=== PATIENT | female | born 1990 | race Two or more races ===

== ENCOUNTER 2017-07-27 10:06 | Emergency (ER) | payer SELFPAY ==
[2017-07-27 10:29] VITALS: BP 105/75
--- NOTE | 2017-07-27 11:07 | ER Document Report ---
HPI - HPI Pain Level: 3 Notes: Patient is a 26-year-old female with no significant past medical history who presents to the ED complaining of urinary urgency, episode of scant hematuria ( one occasion), and bilateral backache 1 day. Patient states that she is still eating and drinking without difficulties. She is having normal bowel movements. Patient states that when she does try to urinate she only gets small amounts out. She denies any concern with STD or STI. She denies any vaginal discharge, odor, or bleeding. No other concerns or complaints at this time. Denies any headache, fever, URI, sore throat, chest pain, palpitations, syncope, cough, shortness of breath, wheeze, dyspnea, abdominal pain, nausea/ vomiting/diarrhea, urinary retention, loss of control of bowel or bladder, numbness/tingling, saddle anesthesia, muscle paralysis/weakness, or rash. No IV drug use or injections/surgeries recently to the back. - ROS Systems Reviewed and Negative: Yes All other systems reviewed and negative - URINARY Urinary: REPORTS: Dysuria - REPRODUCTIVE LMP: mirena Reproductive: DENIES: : Past Medical History - Social History Smoking Status: Current Every Day Smoker Chew tobacco use (# tins/day): No Frequency of alcohol use: None Drug Abuse: Marijuana Family History: None Patient has suicidal ideation: No Patient has homicidal ideation: No Renal/ Medical History: Denies: Hx Peritoneal Dialysis Psychiatric Medical History: Reports: Hx Bipolar Disorder, Hx Depression Past Surgical History: Reports: Hx Dilation and Curettage, Hx Myringotomy - Immunizations Hx Diphtheria, Pertussis, Tetanus Vaccination: No - refused Vertical Provider Document - CONSTITUTIONAL Agree With Documented VS: Yes Notes: PHYSICAL EXAMINATION: GENERAL: Well-appearing, well-nourished and in no acute distress. LUNGS: Breath sounds clear to auscultation bilaterally and equal. No wheezes rales or rhonchi. HEART: Regular rate and rhythm without murmurs, rubs, gallops. ABDOMEN: Soft, nontender, nondistended abdomen. No guarding, no rebound. No masses appreciated. Normal bowel sounds present. + mild left CVA tenderness. Musculoskeletal: FROM to passive/active. Strength 5+/5. Back: FROM. Strength 5+/5. SLR neg. No vertebral point tenderness. No ecchymosis/deformity/erythema. No foot drop. Extremities: No cyanosis, clubbing, or edema b/l. Peripheral pulses 2+. Capillary refill less than 3 seconds. NEUROLOGICAL: Normal speech, normal gait. Normal sensory, motor exams PSYCH: Normal mood, normal affect. SKIN: Warm, Dry, normal turgor, no rashes or lesions noted. - INFECTION CONTROL TRAVEL OUTSIDE OF THE [place] IN LAST 30 DAYS: No Course - Re-evaluation Re-evalutation: 07/27/17 11:18 Patient is an afebrile, well-hydrated, 26-year-old female who presents to the ED with urinary urgency, unspecified as well as low back pain, suspect benign. Vitals are acceptable. PE is otherwise unremarkable for any focal neurological deficits. Urinalysis and hCG were unremarkable for any acute pathology. Patient is tolerating p.o. without any difficulties. No other labs or imaging warranted at this time based on H&P. Low suspicion/risk for acute appendicitis, bowel obstruction, acute cholecystitis, acute cholangitis, perforated diverticulitis, incarcerated hernia , pancreatitis, perforated ulcer, peritonitis, sepsis, pelvic inflammatory disease, ectopic , tubo-ovarian abscess, ovarian torsion, or other systemic emergent condition at this time. Patient is aware that her condition can change from initial presentation and she needs to monitor symptoms closely and seek medical attention if any acute changes. Conservative measures otherwise for symptoms. Recommend conservative measures for symptoms. Toradol given IM today. Recheck with your PCM in 3-5 days. Consider consult with [facility]/urology. Return to the ED with any worsening/concerning symptoms otherwise as reviewed discharge. Patient is in agreement. - Vital Signs Vital signs: Temp Pulse Resp BP Pulse Ox 98.6 F 68 16 105/75 99 07/27/17 10:27 07/27/17 10:27 07/27/17 10:27 07/27/17 10:27 07/27/17 10:27 Discharge - Discharge Clinical Impression: History of urinary urgency Low back pain Qualifiers: Chronicity: acute Back pain laterality: bilateral Sciatica presence: without sciatica Qualified Code(s): M54.5 - Low back pain Condition: Stable Disposition: HOME, SELF-CARE Additional Instructions: Maintain fluid intake Proper hygenic technique Keep the skin clean Tylenol/ibuprofen as needed Take medications as directed F/u with your PCM in 3-5 days for a recheck Consider consult with a Urologist/OBGYN for ongoing/worsening symptoms. Return to the ED with any worsening symptoms and/or development of fever, headache, chest pain, palpitations, syncope, shortness of breath, trouble breathing, abdominal pain, n/v/d, blood in stool/urine, loss of control of bowel /bladder, urinary retention, vagina bleeding/odor/discharge, or other worsening symptoms that are concerning to you. Prescriptions: Naproxen 500 mg PO BID PRN #30 tablet PRN Reason: Referrals: [facility] [Provider Group] - Follow up as needed [facility] [Provider Group] - Follow up as needed
[2017-07-27 11:12] LABS: APPEARANCE,URINE SLIGHTLY-CLOUDY; BILIRUBIN,URINE NEGATIVE (NEGATIVE); COLOR,URINE YELLOW; GLUCOSE, URINE NEGATIVE (NEGATIVE); KETONES,URINE NEGATIVE (NEGATIVE); LEUKOCYTE ESTERASE,URINE NEGATIVE (NEGATIVE); NITRITE,URINE NEGATIVE (NEGATIVE); PROTEIN,URINE NEGATIVE (NEGATIVE); URINE SPECIFIC GRAVITY 1.024; UROBILINOGEN,URINE NEGATIVE mg/dL (<2.0)
[2017-07-27] MEDS ORDERED: KETOROLAC TROMETHAMINE INJ/PF 30 MG/1 ML SDV IM ONE (11:17)
== END 2017-07-27 11:48 | disposition home or self-care (01) ==
LOC: ER 10:06
DX: R39.15 Urgency of urination (principal); M54.5 Low back pain; F17.200 Nicotine dependence, unspecified, uncomplicated
CPT/HCPCS: 99283; 96372; 36415; 87086; 81025; 81001; J1885

== ENCOUNTER 2017-12-02 14:55 | Emergency (ER) | payer SELFPAY ==
[2017-12-02] MEDS ORDERED: ASPIRIN 325 MG TABLET PO ONE (15:44)
--- NOTE | 2017-12-02 15:45 | ER Document Report ---
ED Medical Screen (RME) - General Chief Complaint: Chest Pain Stated Complaint: ARM PAIN Time Seen by Provider: 12/02/17 15:43 Mode of Arrival: Ambulatory Information source: Patient TRAVEL OUTSIDE OF THE [place] IN LAST 30 DAYS: No - HPI Patient complains to provider of: cp Onset: This morning - pt with CPradiating down R arm starting earlier today - Related Data Allergies/Adverse Reactions: oxycodone HCl [From Percocet] Adverse Reaction (Intermediate, Verified 12/02/17 15:28) Vomiting promethazine HCl [From Phenergan] Adverse Reaction (Intermediate, Verified 12/02 15:28) VOMITING Past Medical History - Social History Frequency of alcohol use: None Drug Abuse: Methamphetamine Renal/ Medical History: Denies: Hx Peritoneal Dialysis Psychiatric Medical History: Reports: Hx Bipolar Disorder, Hx Depression Past Surgical History: Reports: Hx Dilation and Curettage, Hx Gynecologic Surgery - D & C, Hx Myringotomy - Immunizations Hx Diphtheria, Pertussis, Tetanus Vaccination: No - refused Physical Exam - Vital signs Vitals: Temp Pulse Resp BP Pulse Ox 97.9 F 64 16 99/62 L 99 12/02/17 15:00 12/02/17 15:00 12/02/17 15:00 12/02/17 15:00 12/02/17 15:00 Course - Vital Signs Vital signs: Temp Pulse Resp BP Pulse Ox 97.9 F 64 16 99/62 L 99 12/02/17 15:00 12/02/17 15:00 12/02/17 15:00 12/02/17 15:00 12/02/17 15:00
[2017-12-02 16:35] LABS: ABSOLUTE EOSINOPHILS # (AUTO) 0.3 10^3/uL (0.0-0.6); ABSOLUTE LYMPHOCYTES (AUTO) 2.9 10^3/uL (0.5-4.7); ABSOLUTE MONOCYTES (AUTO) 0.5 10^3/uL (0.1-1.4); ABSOLUTE NEUT (AUTO) 3.9 10^3/uL (1.7-8.2); BASOPHILS % (AUTO) 0.5 % (0-2); EOSINOPHILS % (AUTO) 3.8 % (0-6); HEMATOCRIT 41.2 % (36.0-47.0); MEAN CORPUSCULAR HEMOGLOBIN 32.1 pg (27.0-33.4); MEAN CORPUSCULAR HGB CONC 34.1 g/dL (32.0-36.0); MEAN CORPUSCULAR VOLUME 94 fl (80-97); MONOCYTES % (AUTO) 6.7 % (3-13); PLATELET COUNT 346 10^3/uL (150-450); RED BLOOD COUNT 4.38 10^6/uL (3.72-5.28); RED CELL DISTRIBUTION WIDTH 12.2 % (11.5-14.0); TOTAL CELLS COUNTED % (AUTO) 100 %; WHITE BLOOD COUNT 7.6 10^3/uL (4.0-10.5)
[2017-12-02 16:53] LABS: ALANINE AMINOTRANSFERASE 17 U/L (9-52); ALBUMIN 4.1 g/dL (3.5-5.0); ALKALINE PHOSPHATASE 44 U/L (38-126); ANION GAP 10 (5-19); ASPARTATE AMINO TRANSFERASE 19 U/L (14-36); BILIRUBIN,DIRECT 0.2 mg/dL (0.0-0.4); BILIRUBIN,TOTAL 0.7 mg/dL (0.2-1.3); BLOOD UREA NITROGEN 15 mg/dL (7-20); CARBON DIOXIDE 29 mmol/L (22-30); CHLORIDE 105 mmol/L (98-107); CREATINE KINASE 123 U/L (30-135); GLUCOSE 86 mg/dL (75-110); POTASSIUM 3.7 mmol/L (3.6-5.0); TOTAL PROTEIN 6.9 g/dL (6.3-8.2)
[2017-12-02 16:56] LABS: URINE AMPHETAMINES SCREEN NEGATIVE; URINE BARBITURATES SCREEN NEGATIVE; URINE BENZODIAZEPINES SCREEN NEGATIVE; URINE COCAINE SCREEN NEGATIVE; URINE MARIJUANA (THC) SCREEN UNCONFIRMED POSITIVE; URINE METHADONE SCREEN NEGATIVE; URINE PHENCYCLIDINE SCREEN NEGATIVE
[2017-12-02 17:14] LABS: CREATINE KINASE MB 0.76 ng/mL (<4.55)
[2017-12-02 17:16] LABS: TROPONIN I < 0.012 ng/mL
--- NOTE | 2017-12-02 18:07 | RADIOLOGY REPORT (SQ) ---
EXAM DESCRIPTION: CHEST 2 VIEWS COMPLETED DATE/TIME: 12/02/2017 5:53 pm REASON FOR STUDY: cp COMPARISON: None. EXAM PARAMETERS: NUMBER OF VIEWS: two views TECHNIQUE: Digital Frontal and Lateral radiographic views of the chest acquired. RADIATION DOSE: NA LIMITATIONS: none FINDINGS: LUNGS AND PLEURA: No opacities, masses or pneumothorax. No pleural effusion. MEDIASTINUM AND HILAR STRUCTURES: No masses or contour abnormalities. HEART AND VASCULAR STRUCTURES: Heart normal size. No evidence for failure. BONES: No acute findings. HARDWARE: None in the chest. OTHER: No other significant finding. IMPRESSION: NO ACUTE RADIOGRAPHIC FINDING IN THE CHEST. TECHNICAL DOCUMENTATION: JOB ID: [id number] [employer]- All Rights Reserved Reading location - IP/workstation name: [email or web address]
[2017-12-02 18:33] LABS: APPEARANCE,URINE SLIGHTLY-CLOUDY; BILIRUBIN,URINE NEGATIVE (NEGATIVE); COLOR,URINE YELLOW; GLUCOSE, URINE NEGATIVE (NEGATIVE); KETONES,URINE NEGATIVE (NEGATIVE); LEUKOCYTE ESTERASE,URINE NEGATIVE (NEGATIVE); NITRITE,URINE POSITIVE (NEGATIVE); PROTEIN,URINE NEGATIVE (NEGATIVE); URINE SPECIFIC GRAVITY 1.023; UROBILINOGEN,URINE NEGATIVE mg/dL (<2.0)
[2017-12-02 19:30] VITALS: BP 107/81
[2017-12-02] MEDS ORDERED: KETOROLAC TROMETHAMINE 60 MG/2 ML SDV IM ONE (19:35)
[2017-12-02] MEDS ORDERED: LIDOCAINE 5% (700 MG) TRANSDERMAL ADH..PATCH TP ONE (19:35)
--- NOTE | 2017-12-02 19:39 | ER Document Report ---
ED General - General Chief Complaint: Chest Pain Stated Complaint: ARM PAIN Time Seen by Provider: 12/02/17 15:43 Mode of Arrival: Ambulatory Notes: Patient is a 27-year-old female without chronic medical problems who presents with diffuse chest pain as well as right upper extremity paresthesias that started approximately 8 hours prior to arrival and have been ongoing since that time. 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 She describes the pain in her chest is a stabbing, aching, constant pain. She states the pain is worsened with movement. Nothing improves the pain. She denies any history of similar symptoms in the past. She has no history of cardiac conditions, DVT or pulmonary embolus. No history of connective tissue disorders. No family history of early cardiac disease. She has not seen her general doctor regarding today's concerns. TRAVEL OUTSIDE OF THE [place] IN LAST 30 DAYS: No - Related Data Allergies/Adverse Reactions: oxycodone HCl [From Percocet] Adverse Reaction (Intermediate, Verified 12/02/17 15:28) Vomiting promethazine HCl [From Phenergan] Adverse Reaction (Intermediate, Verified 12/02 15:28) VOMITING Past Medical History - General Information source: Patient - Social History Smoking Status: Current Every Day Smoker Frequency of alcohol use: None Drug Abuse: Marijuana Lives with: Family Family History: Reviewed & Not Pertinent Patient has suicidal ideation: No Patient has homicidal ideation: No Renal/ Medical History: Denies: Hx Peritoneal Dialysis Psychiatric Medical History: Reports: Hx Bipolar Disorder, Hx Depression Past Surgical History: Reports: Hx Dilation and Curettage, Hx Gynecologic Surgery - D & C, Hx Myringotomy - Immunizations Hx Diphtheria, Pertussis, Tetanus Vaccination: No - refused Review of Systems - Review of Systems Notes: Constitutional: Negative for fever. HENT: Negative for sore throat. Eyes: Negative for visual changes. Cardiovascular: Positive for chest pain. Respiratory: Negative for shortness of breath. Gastrointestinal: Negative for abdominal pain, vomiting or diarrhea. Genitourinary: Negative for dysuria. Musculoskeletal: Negative for back pain. Skin: Negative for rash. Neurological: Negative for headaches, positive for right upper extremity paresthesias 10 point ROS negative except as marked above and in HPI. Physical Exam - Vital signs Vitals: Temp Pulse Resp BP Pulse Ox 97.9 F 64 16 99/62 L 99 08/10/18 15:00 12/02/17 15:00 12/02/17 15:00 12/02/17 15:00 12/02/17 15:00 Interpretation: Normal Notes: PHYSICAL EXAMINATION: GENERAL: Well-appearing, well-nourished and in no acute distress. HEAD: Atraumatic, normocephalic. EYES: Pupils equal round and reactive to light, extraocular movements intact, sclera anicteric, conjunctiva are normal. ENT: nares patent, oropharynx clear without exudates. Moist mucous membranes. NECK: Normal range of motion, supple without lymphadenopathy LUNGS: Breath sounds clear to auscultation bilaterally and equal. No wheezes rales or rhonchi. HEART: Regular rate and rhythm without murmurs Chest wall: Severe pain on palpation of the left and right central chest ABDOMEN: Soft, nontender, normoactive bowel sounds. No guarding, no rebound. No masses appreciated. EXTREMITIES: Normal range of motion, no pitting or edema. No cyanosis. NEUROLOGICAL: Face symmetric. Tongue protrudes midline. Extraocular motions intact. Pupils are 2 mm and equally reactive. Normal speech, normal gait. 5 out of 5 strength in both the distal and proximal upper and lower extremities bilaterally. Sensation is grossly intact throughout. Finger to nose testing normal. Pronator drift normal. PSYCH: Normal mood, normal affect. SKIN: Warm, Dry, normal turgor, no rashes or lesions noted. Course - Re-evaluation Re-evalutation: 12/02/17 19:36 Presentation of chest pain in an otherwise well appearing patient. Low clinical suspicion for ACS given clinical history, exam, EKG without ST elevations or depressions, and negative initial troponin. HEART score less than or equal to 3. PE also seems unlikely given clinical history, absence of tachycardia or dyspnea. Patient is PERC criteria negative. CXR without evidence of pneumothorax or pneumonia. No widened mediastinum. Aortic dissection also seems unlikely given history, symmetric pulses, CXR, and vitals. Patient has had chest pain for greater than 6 hours at the time of initial assessment and her very atypical clinical history does not warrant serial cardiac marker testing. The patient's pain is completely reproducible with palpation of the chest wall as well as the periscapular muscles in the back. Range of motion of the shoulders also irritates her discomfort. She has no risk factors other than smoking for cardiac disease. She will be treated with NSAIDs and topical lidocaine. At this time will discharge with return precautions and follow-up recommendations. Verbal discharge instructions given a the bedside and opportunity for questions given. Medication warnings reviewed. Patient is in agreement with this plan and has verbalized understanding of return precautions and the need for primary care follow-up in the next 24-72 hours. - Vital Signs Vital signs: Temp Pulse Resp BP Pulse Ox 98.3 F 62 16 107/81 99 12/02/17 19:27 12/02/17 19:27 12/02/17 19:27 12/02/17 19:27 12/02/17 19:27 - Laboratory Result Diagrams: 12/02/17 16:20 12/02/17 16:20 Laboratory results interpreted by me: 12/02/17 16:20 Urine Nitrite POSITIVE H - Diagnostic Test Radiology reviewed: Image reviewed, Reports reviewed Radiology results interpreted by me: 12/02/17 19:37 Chest x-ray: No acute infiltrate or pneumothorax - EKG Interpretation by Me Additional EKG results interpreted by me: 12/02/17 19:37 Sinus rhythm. Rate 63. No ST elevations or depressions. QTC is 406. Discharge - Discharge Clinical Impression: Chest wall pain, Arm paresthesia, right Condition: Good Disposition: HOME, SELF-CARE Additional Instructions: You were seen today for chest pain. The exact cause of your pain is unclear although it appears to be most likely related to the muscles of your chest. Please take the naproxen that has been prescribed as directed. Based on your cardiac enzyme testing, chest x-ray, and EKG it does not appear that it is from an immediately life-threatening cause at this time. Although your testing here is normal is critical that you follow-up with your primary care physician for continued evaluation of this chest pain and possible stress testing. I recommended you see your physician within the next 24-48 hours to be evaluated for consideration of a stress test. Please return to emergency department immediately if you have worsening of your chest pain, shortness of breath, vomiting, become unable to exert yourself due to pain or difficulty breathing, you pass out, or have any pain that radiates into your arms, jaw, or back. Please also return if you have any additional symptoms that are concerning to you. Prescriptions: Naproxen 500 mg PO BID PRN #60 tablet PRN Reason: Forms: Return to Work
--- NOTE | 2017-12-03 00:09 | EKG REPORT ---
SEVERITY:- OTHERWISE NORMAL ECG - BORDERLINE LEFT AXIS DEVIATION SINUS RHYTHM : Confirmed by: Lexii Loera MD 03-Dec-2017 00:08:00
== END 2017-12-02 20:00 | disposition home or self-care (01) ==
LOC: ER 14:55
DX: R07.89 Other chest pain (principal); R20.2 Paresthesia of skin; F17.200 Nicotine dependence, unspecified, uncomplicated; F12.10 Cannabis abuse, uncomplicated
CPT/HCPCS: 36415; 71046; 80053; 80307; 81001; 81025; 82550; 82553; 84484; 85025; 93005; 93010; 99285

== ENCOUNTER 2017-12-14 12:58 | Emergency (ER) | payer SELFPAY ==
--- NOTE | 2017-12-14 14:09 | ER Document Report ---
ED Medical Screen (RME) - General Chief Complaint: Chest Pain Stated Complaint: CHEST PAIN Time Seen by Provider: 12/14/17 14:00 Mode of Arrival: Ambulatory Information source: Patient Notes: This is a 27-year-old female with no significant medical problems who presents to the emergency room with chest tightness for the past 2 weeks. She says it is worse with movement and lifting at work. She states it is worse when taking in a deep breath. She was evaluated December 02 for this and was treated with Naprosyn patient states she took it a few times but stopped because she did not like the way it felt. She does have a history of hypertension. Patient is otherwise on no medicines. PERC score is negative: Age 27 O2 sat 98% on room air Heart rate 80 No history of VTE No recent trauma Denies hemoptysis No exogenous estrogen No calf complaints or visible asymmetry TRAVEL OUTSIDE OF THE [place] IN LAST 30 DAYS: No - HPI Onset: Last week Onset/Duration: Gradual Quality of pain: Dull Severity: Mild Pain Level: 1 Associated Symptoms: Chest pain. denies: Cough (productive), Cough ( nonproductive), Diarrhea, Nausea, Shortness of breath Exacerbated by: Movement Relieved by: Remaining still Similar symptoms previously: Yes Recently seen / treated by doctor: Yes - Related Data Smoking: Cigarettes - 3-4 cigarettes a day Frequency of alcohol use: None Drug Abuse: None Allergies/Adverse Reactions: oxycodone HCl [From Percocet] Adverse Reaction (Intermediate, Verified 12/14/17 13:00) Vomiting promethazine HCl [From Phenergan] Adverse Reaction (Intermediate, Verified 12/14 13:00) VOMITING Past Medical History - General Information source: Patient - Social History Cigarette use (# per day): Yes - 2-4 cigarettes a day Chew tobacco use (# tins/day): No Frequency of alcohol use: Rare Drug Abuse: Marijuana Lives with: Family Family history: None - Past Medical History Cardiac Medical History: Denies: Hx Atrial Fibrillation, Hx Congestive Heart Failure, Hx Hypertension Pulmonary Medical History: Denies: Hx Asthma, Hx COPD, Hx Pneumonia Neurological Medical History: Reports: None Endocrine Medical History: Reports: None Renal/ Medical History: Denies: Hx Peritoneal Dialysis Malignancy Medical History: Reports: None GI Medical History: Reports: None Musculoskeltal Medical History: Reports None Psychiatric Medical History: Reports: Hx Bipolar Disorder, Hx Depression Past Surgical History: Reports: Hx Dilation and Curettage, Hx Gynecologic Surgery - D & C, Hx Myringotomy - Immunizations Hx Diphtheria, Pertussis, Tetanus Vaccination: No - refused Review of Systems - Review of Systems Constitutional: denies: Chills, Fever EENT: No symptoms reported Cardiovascular: denies: Palpitations, Heart racing, Orthopnea, Dyspnea, Syncope Respiratory: denies: Hemoptysis, Short of breath Gastrointestinal: No symptoms reported Genitourinary: No symptoms reported Female Genitourinary: No symptoms reported Musculoskeletal: See HPI Skin: No symptoms reported Hematologic/Lymphatic: No symptoms reported Neurological/Psychological: No symptoms reported Physical Exam - Vital signs Vitals: Temp Pulse Resp BP Pulse Ox 98.9 F 80 20 107/79 98 12/14/17 13:11 12/14/17 13:11 12/14/17 13:11 12/14/17 13:11 12/14/17 13:11 Notes: Physical exam: GENERAL: 27-year-old female, alert and oriented 3, no acute distress. Patient looks good. HEAD: Atraumatic, normocephalic. EYES: Pupils equal round and reactive to light, extraocular movements intact, sclera anicteric, conjunctiva are normal. ENT: TMs normal, nares patent, oropharynx clear without exudates. Moist mucous membranes. NECK: Normal range of motion, supple without obvious mass or JVD. LUNGS: Breath sounds clear to auscultation bilaterally and equal. No wheezes rales or rhonchi. HEART: Regular rate and rhythm without murmurs, rubs or gallops. ABDOMEN: Soft, normoactive bowel sounds. No tenderness to palpation. No guarding, no rebound. No masses appreciated. EXTREMITIES: Normal range of motion, no pitting or edema. No clubbing or cyanosis. NEUROLOGICAL: Cranial nerves II through XII grossly intact. Normal speech, moving all extremities. PSYCH: Normal mood, normal affect. SKIN: Warm, Dry, normal turgor, no rashes or lesions noted. Course - Re-evaluation Re-evalutation: 12/14/17 19:51 Note: Patient's oxygen saturation is quite good. She looks comfortable. Her lungs are clear. She is PERC negative and her d-dimer is negative which makes her risk of pulmonary embolism exceedingly low. Her EKG shows no significant changes. Her symptoms are not consistent with an acute coronary syndrome. It does appear to be worse with movement of her chest wall at work. - Vital Signs Vital signs: Temp Pulse Resp BP Pulse Ox 97.8 F 96 18 113/83 100 12/14/17 17:51 12/14/17 17:51 12/14/17 17:51 12/14/17 17:51 12/14/17 17:51 - Laboratory Result Diagrams: 12/14/17 14:23 12/14/17 16:38 Laboratory results interpreted by me: 12/14/17 16:38 Glucose 127 H Doctor's Discharge - Discharge Clinical Impression: Chest wall pain Condition: Stable Disposition: HOME, SELF-CARE Additional Instructions: As discussed, your labs look quite good today. The heart tests were normal and the tests for blood clot was normal. Your EKG was a normal rhythm and no change from previous which is good. I recommend taking some ibuprofen every 6 hours for pain. Also, you could try the albuterol inhaler: 2 puffs every 6 hours to see if it helps with the tightness. Follow-up with a primary care doctor: I left the number for the [facility] clinic [facility] the [facility]. Return to the emergency room for any shortness of breath, worsening pain or any concerns or getting worse. Forms: Restricted Release, Return to Work Referrals: [facility] [Provider Group] - Follow up in 1 week (This is the number the [facility]: Call for)
[2017-12-14 14:49] LABS: ABSOLUTE EOSINOPHILS # (AUTO) 0.2 10^3/uL (0.0-0.6); ABSOLUTE LYMPHOCYTES (AUTO) 2.3 10^3/uL (0.5-4.7); ABSOLUTE MONOCYTES (AUTO) 0.6 10^3/uL (0.1-1.4); ABSOLUTE NEUT (AUTO) 4.7 10^3/uL (1.7-8.2); BASOPHILS % (AUTO) 0.5 % (0-2); EOSINOPHILS % (AUTO) 2.5 % (0-6); HEMATOCRIT 42.9 % (36.0-47.0); HEMOGLOBIN 14.5 g/dL (12.0-15.5); LYMPHOCYTES % (AUTO) 29.2 % (13-45); MEAN CORPUSCULAR HEMOGLOBIN 31.7 pg (27.0-33.4); MEAN CORPUSCULAR HGB CONC 33.8 g/dL (32.0-36.0); MEAN CORPUSCULAR VOLUME 94 fl (80-97); MONOCYTES % (AUTO) 7.2 % (3-13); PLATELET COUNT 345 10^3/uL (150-450); RED BLOOD COUNT 4.57 10^6/uL (3.72-5.28); RED CELL DISTRIBUTION WIDTH 12.6 % (11.5-14.0); SEGMENTED NEUTROPHILS % (AUTO) 60.6 % (42-78); TOTAL CELLS COUNTED % (AUTO) 100 %; WHITE BLOOD COUNT 7.7 10^3/uL (4.0-10.5)
[2017-12-14 15:23] LABS: CREATINE KINASE MB 0.45 ng/mL (<4.55)
[2017-12-14 15:27] LABS: TROPONIN I < 0.012 ng/mL
[2017-12-14 17:13] LABS: ALANINE AMINOTRANSFERASE 21 U/L (9-52); ALBUMIN 4.2 g/dL (3.5-5.0); ALKALINE PHOSPHATASE 50 U/L (38-126); ANION GAP 14 (5-19); ASPARTATE AMINO TRANSFERASE 18 U/L (14-36); BILIRUBIN,DIRECT 0.2 mg/dL (0.0-0.4); BILIRUBIN,TOTAL 0.3 mg/dL (0.2-1.3); BLOOD UREA NITROGEN 20 mg/dL (7-20); CALCIUM 9.2 mg/dL (8.4-10.2); CARBON DIOXIDE 25 mmol/L (22-30); CHLORIDE 105 mmol/L (98-107); CREATINE KINASE 111 U/L (30-135); GLUCOSE 127 mg/dL (75-110); POTASSIUM 4.3 mmol/L (3.6-5.0); SODIUM 143.5 mmol/L (137-145); TOTAL PROTEIN 7.3 g/dL (6.3-8.2)
[2017-12-14] MEDS ORDERED: ALBUTEROL SULFATE HFA (90 MCG/PUFF) 8 GM MDI (1 MDI/ER DISP) IH ONE (17:50)
[2017-12-14 18:00] VITALS: BP 113/83
--- NOTE | 2017-12-14 22:19 | EKG REPORT ---
SEVERITY:- OTHERWISE NORMAL ECG - SINUS RHYTHM LEFT AXIS DEVIATION : Confirmed by: Mariana Thompson 14-Dec-2017 22:17:55
== END 2017-12-14 18:00 | disposition home or self-care (01) ==
LOC: ER 12:58
DX: R07.89 Other chest pain (principal)
CPT/HCPCS: 93005; 99284; 36415; 82553; 82550; 85025; 80053; 84484; 85379; 93010; J3490

== ENCOUNTER 2018-07-28 21:05 | Emergency (ER) | payer SELFPAY ==
[2018-07-28] MEDS ORDERED: ONDANSETRON 4 MG TAB.RAPDIS PO ONE (23:30)
--- NOTE | 2018-07-28 23:40 | ER Document Report ---
Addendum entered and electronically signed by TEJAS WOLFE NP 07/28/18 23:42: Discharge - Discharge Clinical Impression: Diarrhea Condition: Stable Disposition: HOME, SELF-CARE Instructions: Diarrhea, Nonspecific ([facility]), Nausea or Vomiting, Nonspecific ([facility]) Additional Instructions: Take medication as prescribed. Drink plenty fluids. Tylenol or Motrin as needed for pain. Follow-up with your doctor if not better in the next 3-5 days, sooner for worsening symptoms, high fever, severe abdominal pain, persistent vomiting, blood in her stool, or for any further concerns. Prescriptions: Dicyclomine HCl [Bentyl 20 mg Tablet] 20 mg PO QID #20 tablet Ondansetron HCl [Zofran 4 mg Tablet] 1 - 2 tab PO Q4H PRN #10 tablet PRN Reason: Forms: Elevated Blood Pressure, Smoking Cessation Education, Return to Work Referrals: [facility] [Provider Group] - Follow up as needed Original Note: ED GI/ - General Chief Complaint: Loose Stools Stated Complaint: DIARRHEA Time Seen by Provider: 07/28/18 23:16 Mode of Arrival: Ambulatory Information source: Patient TRAVEL OUTSIDE OF THE [place] IN LAST 30 DAYS: No - HPI Patient complains to provider of: Diarrhea Notes: 07/28/18 23:33 Patient is here with her 2 children that are also being seen for nausea vomiting. Mother states that she has had some upset stomach, nausea without vomiting but has had some diarrhea but in her stool. She denies any specific abdominal pain other than some occasional cramping. Her children are being seen with vomiting. She states that she had to miss work, so her only reason for coming in today was to get a work note. She denies fevers. No dysuria or hematuria. No chest pain or shortness of breath. No numbness, tingling, weakness. No recent travel. No specific bad food that she is aware of. Nothing seems to make her symptoms better or worse. She has had approximately 2 watery stools, no blood. She denies any other specific complaints at this time. - Related Data Allergies/Adverse Reactions: oxycodone HCl [From Percocet] Adverse Reaction (Intermediate, Verified 12/14/17 13:00) Vomiting promethazine HCl [From Phenergan] Adverse Reaction (Intermediate, Verified 12/14/17 13:00) VOMITING Past Medical History - Social History Smoking Status: Current Every Day Smoker Chew tobacco use (# tins/day): No Frequency of alcohol use: None Drug Abuse: None Family History: Reviewed & Not Pertinent Patient has suicidal ideation: No Patient has homicidal ideation: No - Past Medical History Cardiac Medical History: Denies: Hx Atrial Fibrillation, Hx Congestive Heart Failure, Hx Hypertension Pulmonary Medical History: Denies: Hx Asthma, Hx COPD, Hx Pneumonia Renal/ Medical History: Denies: Hx Peritoneal Dialysis Psychiatric Medical History: Reports: Hx Bipolar Disorder, Hx Depression Past Surgical History: Reports: Hx Dilation and Curettage, Hx Gynecologic Surgery - D & C, Hx Myringotomy - Immunizations Hx Diphtheria, Pertussis, Tetanus Vaccination: No - refused Review of Systems - Review of Systems -: Yes All other systems reviewed and negative Physical Exam - Vital signs Vitals: Temp Pulse Resp BP Pulse Ox 98.3 F 100 16 104/68 98 07/28/18 21:39 07/28/18 21:39 07/28/18 21:39 07/28/18 21:39 07/28/18 21:39 - Notes Notes: GENERAL: alert, cooperative, nontoxic, no distress. HEAD: normocephalic, atraumatic EYES: conjunctiva pink without discharge, no external redness or swelling. EARS: no external swelling, no external redness NOSE: atraumatic, no external swelling MOUTH/THROAT: mucous membranes moist and pink, posterior pharynx without erythema, swelling, exudate. No trismus or drooling. NECK: soft, supple, full range of motion, no meningismus. CHEST: no distress, lungs clear and equal throughout. No wheezing, rales, rhonchi. CARDIAC: regular rate and rhythm, no murmur, normal capillary refill, normal pulses. No peripheral edema noted. ABDOMEN: Soft, nontender. No rebound tenderness or guarding. No mass. BACK: full range of motion. EXTREMITIES: full range of motion of all extremities. No redness, no swelling. NEURO: alert and oriented x 3, no focal deficits, full range of motion of all extremities. PYSCH: appropriate mood, affect. Patient is cooperative. SKIN: pink, warm, dry, no rash. Course - Re-evaluation Re-evalutation: 07/28/18 23:34 Patient is nontoxic-appearing with stable vitals. The patient is here with complaints of a few episodes of diarrhea with upset stomach that started earlier this afternoon. Her 2 children are being seen as well for nausea via. They both have a benign exam as well. Mother appears well hydrated, she has no specific focal abdominal tenderness on exam. Her vitals are stable. Patient was given a dose of Zofran for her nausea. She states the only reason she is being seen so that she can get a work note. At this point the patient will be discharged home with a prescription for Zofran and Bentyl. Instructions to drink plenty fluids. Work note. Follow-up if not better in the next 3-5 days, sooner for any worsening symptoms, high fever, severe abdominal pain, persistent vomiting, or for any further concerns. Patient most likely having gastroenteritis versus food poisoning as her 2 children are having the same symptoms. - Vital Signs Vital signs: Temp Pulse Resp BP Pulse Ox 98.3 F 100 16 104/68 98 07/28/18 21:39 07/28/18 21:39 07/28/18 21:39 07/28/18 21:39 07/28/18 21:39 Discharge - Discharge Clinical Impression: Diarrhea Condition: Stable Disposition: HOME, SELF-CARE Instructions: Nausea or Vomiting, Nonspecific ([facility]), Diarrhea, Nonspecific ([facility]) Additional Instructions: Take medication as prescribed. Drink plenty fluids. Tylenol or Motrin as needed for pain. Follow-up with your doctor if not better in the next 3-5 days, sooner for worsening symptoms, high fever, severe abdominal pain, persistent vomiting, blood in her stool, or for any further concerns. Prescriptions: Dicyclomine HCl [Bentyl 20 mg Tablet] 20 mg PO QID #20 tablet Ondansetron HCl [Zofran 4 mg Tablet] 1 - 2 tab PO Q4H PRN #10 tablet PRN Reason: Forms: Elevated Blood Pressure, Smoking Cessation Education Referrals: [facility] [Provider Group] - Follow up as needed
[2018-07-29 00:37] VITALS: BP 110/72
== END 2018-07-29 00:50 | disposition home or self-care (01) ==
LOC: ER 21:05
DX: R19.7 Diarrhea, unspecified (principal); R11.0 Nausea; R10.9 Unspecified abdominal pain; F17.200 Nicotine dependence, unspecified, uncomplicated
CPT/HCPCS: 99283; S0119

== ENCOUNTER 2018-10-16 15:32 | Emergency (ER) | payer SELFPAY ==
[2018-10-16] MEDS ORDERED: IPRATROPIUM/ALBUTEROL 0.5-2.5 MG/3 ML AMPUL NEB ONE (18:02)
[2018-10-16] MEDS ORDERED: PREDNISONE 20 MG TABLET PO ONE (18:02)
[2018-10-16] MEDS ORDERED: ACETAMINOPHEN 325 MG TABLET PO ONE (18:02)
--- NOTE | 2018-10-16 18:03 | ER Document Report ---
HPI - HPI Patient complains to provider of: Cough Time Seen by Provider: 10/16/18 17:57 Onset/Duration: Persistent Quality of pain: Achy Pain Level: 3 Context: Patient presents with cough for the past 10 days with headache and shortness of breath. Patient reports vomiting today. No fever. Associated Symptoms: Nonproductive cough, Headache, Vomiting. denies: Fever Exacerbated by: Denies Relieved by: Denies Similar symptoms previously: No Recently seen / treated by doctor: No - ROS ROS below otherwise negative: Yes Systems Reviewed and Negative: Yes All other systems reviewed and negative - CONSTITUTIONAL Constitutional: REPORTS: Chills. DENIES: Fever - EENT EENT: DENIES: Sore Throat - NEURO Neurology: REPORTS: Headache - RESPIRATORY Respiratory: REPORTS: Coughing - GASTROINTESTINAL Gastrointestinal: REPORTS: Patient vomiting. DENIES: Abdominal Pain, Nausea - REPRODUCTIVE Reproductive: DENIES: : - DERM Skin Color: Normal Skin Problems: None Past Medical History - General Information source: Patient - Social History Smoking Status: Current Every Day Smoker Smoking Education Provided: Yes Frequency of alcohol use: None Drug Abuse: None Occupation: food beverage supervisor Family History: Reviewed & Not Pertinent Patient has suicidal ideation: No Patient has homicidal ideation: No Renal/ Medical History: Denies: Hx Peritoneal Dialysis Psychiatric Medical History: Reports: Hx Bipolar Disorder, Hx Depression Past Surgical History: Reports: Hx Dilation and Curettage, Hx Gynecologic Surgery - D & C, Hx Myringotomy - Immunizations Hx Diphtheria, Pertussis, Tetanus Vaccination: No - refused Vertical Provider Document - CONSTITUTIONAL Agree With Documented VS: Yes Exam Limitations: No Limitations General Appearance: WD/WN, No Apparent Distress - INFECTION CONTROL TRAVEL OUTSIDE OF THE [place] IN LAST 30 DAYS: No - HEENT HEENT: Atraumatic, Normocephalic. negative: Pharyngeal Exudate, Pharyngeal Ten derness, Pharyngeal Erythema, Tympanic Membrane Red, Tympanic Membrane Bulging Notes: clear rhinorrhea - NECK Neck: Normal Inspection, Supple. negative: Lymphadenopathy-Left, Lymphadenopathy-Right - RESPIRATORY Respiratory: No Respiratory Distress, Chest Non-Tender, Rhonchi, Wheezing - CARDIOVASCULAR Cardiovascular: Regular Rate, Regular Rhythm, No Murmur. negative: Bradycardia - GI/ABDOMEN Gastrointestinal: Abdomen Soft - BACK Back: Normal Inspection - MUSCULOSKELETAL/EXTREMETIES Musculoskeletal/Extremeties: BETO PIÑA - NEURO Level of Consciousness: Awake, Alert, Appropriate Motor/Sensory: No Motor Deficit - DERM Integumentary: Warm, Dry, No Rash Course - Re-evaluation Re-evalutation: 10/16/18 18:59 Respirations even unlabored, decreased wheezing bilaterally with increased air movement. Patient nontoxic in appearance. Patient encouraged to stop smoking. - Vital Signs Vital signs: Temp Pulse Resp BP Pulse Ox 98.1 F 86 16 106/72 93 10/16/18 15:43 10/16/18 15:43 10/16/18 15:43 10/16/18 15:43 10/16/18 15:43 - Diagnostic Test Radiology reviewed: Reports reviewed Discharge - Discharge Clinical Impression: Upper respiratory infection Qualifiers: URI type: unspecified URI Qualified Code(s): J06.9 - Acute upper respiratory infection, unspecified Condition: Stable Disposition: HOME, SELF-CARE Additional Instructions: Return immediately for any new or worsening symptoms Followup with your primary care provider, call tomorrow to make a followup eben ointment UPPER RESPIRATORY ILLNESS: You have a viral infection of the respiratory passages -- a "cold." This common infection causes nasal congestion, drainage, and often sore throat and cough. It is highly contagious. The disease usually lasts about 10 to 14 days. There is no "cure" for the viral infection -- it must run its course. If there is a complication, such as bacterial infection in the nose, sinuses, middle ear, or bronchial tubes, antibiotics may be required. The antibiotics won't affect the virus. Drink plenty of fluids. A humidifier may help. An expectorant medication or decongestant may make you more comfortable. Use acetaminophen or ibuprofen for fever or aches. See the doctor if fever persists over two days, if there is any significant worsening of your symptoms, or if you simply fail to improve as expected. BRONCHOSPASM: You have tightness in the bronchial tubes, called bronchospasm. This often occurs with bronchial infections. Allergies, inhaled chemicals, and polluted or cold air can also provoke bronchospasm. It's more likely in patients with asthma in the family. Emergency treatment of bronchospasm may include adrenaline shots or bronchodilator aerosol. You may feel lightheaded and have a rapid pulse for an hour or two. Rest and get plenty of fluids. At home, we'll treat you with a bronchodilator inhaler. Antibiotics and corticosteroids may be required for some patients. Until you recover, avoid chemical fumes, dusts, pollens, and exercising in very cold or dry air. If you smoke, stop now!! If you develop a fever, increased wheezing, chest pain, or severe shortness of breath, you should contact the doctor immediately. INHALED BRONCHODILATORS: You have received a treatment of and/or prescription for an inhaled bronchodilator -- a medication which stimulates the airways in the lung to dilate. This improves the flow of air in asthma, bronchitis, and emphysema. These medicines have some similarity to adrenaline, and can cause similar side effects: shakiness, racing heart, and a sense of nervousness. These side effects decrease with time. Contact your doctor if these side effects are severe. Do not over-use the medicine. Too-frequent use of the inhaler may make it ineffective. Call your doctor if the inhaler is not controlling your symptoms at the prescribed doses. STEROID MEDICATION: You have been given an injection of or oral medicine of the cortisone/steroid class. This medication is used to control inflammation or allergy. Onesimo t is usually only given for a short period of time, until the acute process subsides. There are usually no side effects from short-term use of cortisone-like medications. Some persons feel an increased sense of well-being and are not sleepy at bedtime. Long-term use of cortisone medications is best avoided, unless required for a severe condition. If your condition does not remit, or relapses after the course of corticosteroid medication, you should consult your physician. USE OF ACETAMINOPHEN (Tylenol): Acetaminophen may be taken for pain relief or fever control. It's much safer than aspirin, offering a wider range of "safe" dosages. It is safe during . Some brand names are Tylenol, Panadol, Datril, Anacin 3, Tempra, and Liquiprin. Acetaminophen can be repeated every four hours. The following are maximum recommended dosages: >89 pounds or adults 650 mg to 900 mg Acetaminophen can be repeated every four hours. Maximum dose not to exceed 4000 mg a day. SMOKING: If you smoke, you should stop smoking. The tar and chemicals in cigarette smoke are harmful. Smoking has been shown to cause: emphysema chronic bronchitis lung cancer mouth and throat cancer stomach and pancreas cancer premature aging defects In addition, smoking increases ear and lung infections in children of smokers. FOLLOW-UP CARE: If you have been referred to a physician for follow-up care, call the physicians office for an appointment as you were instructed or within the next two days. If you experience worsening or a significant change in your symptoms, notify the physician immediately or return to the Emergency Department at any time for re-evaluation. Prescriptions: Albuterol Sulfate [Proair Hfa Inhalation Aerosol 8.5 gm Mdi] 2 puff IH Q4 PRN #1 mdi PRN Reason: Inhaler,Assist Device,Accesory [Optichamber] 1 each MC Q4 PRN #1 each PRN Reason: Prednisone [Deltasone 20 mg Tablet] 3 tab PO DAILY 4 Days tablet Forms: Smoking Cessation Education, Return to Work Referrals: [facility] [Provider Group] - Follow up as needed
[2018-10-16] MEDS: ALBUTEROL SULFATE 0.083% NEB 2.5 MG/3 ML AMPUL NEB SCH ×2 (18:22→18:34)
--- NOTE | 2018-10-16 18:27 | RADIOLOGY REPORT (SQ) ---
EXAM DESCRIPTION: CHEST 2 VIEWS COMPLETED DATE/TIME: 10/16/2018 6:16 pm REASON FOR STUDY: cough COMPARISON: None. TECHNIQUE: Frontal and lateral radiographic views of the chest acquired. NUMBER OF VIEWS: Two view. LIMITATIONS: None. FINDINGS: LUNGS AND PLEURA: No pneumothorax. No consolidation or pleural effusion. MEDIASTINUM AND HILAR STRUCTURES: Stable. HEART AND VASCULAR STRUCTURES: Stable. BONES: No acute findings. HARDWARE: None in the chest. OTHER: No other significant finding. IMPRESSION: NO ACUTE FINDINGS. TECHNICAL DOCUMENTATION: JOB ID: [id number] [place]-72 2010 [employer]- All Rights Reserved Reading location - IP/workstation name: [email or web address]
[2018-10-16 19:11] VITALS: BP 100/59
== END 2018-10-16 19:32 | disposition home or self-care (01) ==
LOC: ER 15:32
DX: J06.9 Acute upper respiratory infection, unspecified (principal); R05 Cough; R51 Headache; R06.02 Shortness of breath; R11.10 Vomiting, unspecified; F17.200 Nicotine dependence, unspecified, uncomplicated
CPT/HCPCS: 94640 ×2; 99283; 71046; J7512; J7620

== ENCOUNTER 2019-02-28 09:04 | Emergency (ER) | payer SELFPAY ==
[2019-02-28] MEDS ORDERED: IPRATROPIUM/ALBUTEROL 0.5-2.5 MG/3 ML AMPUL NEB ONE ×2 (09:41→12:57)
[2019-02-28] MEDS: ALBUTEROL SULFATE 0.083% NEB 2.5 MG/3 ML AMPUL NEB SCH ×2 (09:49→11:18)
--- NOTE | 2019-02-28 10:09 | RADIOLOGY REPORT (SQ) ---
EXAM DESCRIPTION: CHEST 2 VIEWS COMPLETED DATE/TIME: 02/28/2019 9:50 am REASON FOR STUDY: sob COMPARISON: 10/16/2018 EXAM PARAMETERS: NUMBER OF VIEWS: two views TECHNIQUE: Digital Frontal and Lateral radiographic views of the chest acquired. RADIATION DOSE: NA LIMITATIONS: none FINDINGS: LUNGS AND PLEURA: No opacities, masses or pneumothorax. No pleural effusion. MEDIASTINUM AND HILAR STRUCTURES: No masses or contour abnormalities. HEART AND VASCULAR STRUCTURES: Heart normal size. No evidence for failure. BONES: No acute findings. HARDWARE: None in the chest. OTHER: No other significant finding. IMPRESSION: NO ACUTE RADIOGRAPHIC FINDING IN THE CHEST. TECHNICAL DOCUMENTATION: JOB ID: [id number] [employer]- All Rights Reserved Reading location - IP/workstation name: [email or web address]
[2019-02-28] MEDS ORDERED: METHYLPREDNISOLONE INJ 125 MG/2 ML SDV IM ONE (11:07)
--- NOTE | 2019-02-28 11:07 | ER Document Report ---
ED Medical Screen (RME) - General Chief Complaint: Shortness Of Breath Stated Complaint: SHORTNESS OF BREATH Time Seen by Provider: 02/28/19 11:00 Mode of Arrival: Ambulatory Information source: Patient Notes: 28-year-old female presents to ED for complaint of cough congestion shortness of breath times a week. She states her mother has asthma but she has never been diagnosed with asthma. She states she does not have a fever. He does have a O2 sat of 91% after 2 DuoNeb's and 1 albuterol. Will treat with 2 albuterol's and Solu-Medrol IM patient is alert oriented respirations unlabored lung sounds are mildly diminished O2 sats 91%. I have greeted and performed a rapid initial assessment of this patient. A comprehensive ED assessment and evaluation of the patient, analysis of test results and completion of medical decision making process will be conducted by an additional ED providers. TRAVEL OUTSIDE OF THE [place] IN LAST 30 DAYS: No - Related Data Allergies/Adverse Reactions: oxycodone HCl [From Percocet] Adverse Reaction (Intermediate, Verified 02/28/19 09:10) Vomiting promethazine HCl [From Phenergan] Adverse Reaction (Intermediate, Verified 02/28/19 09:10) VOMITING Past Medical History - Social History Frequency of alcohol use: Occasional Drug Abuse: Marijuana Family history: None - Past Medical History Cardiac Medical History: Denies: Hx Atrial Fibrillation, Hx Congestive Heart Failure, Hx Hypertension Pulmonary Medical History: Denies: Hx Asthma, Hx COPD, Hx Pneumonia Renal/ Medical History: Denies: Hx Peritoneal Dialysis Psychiatric Medical History: Reports: Hx Bipolar Disorder, Hx Depression Past Surgical History: Reports: Hx Dilation and Curettage, Hx Gynecologic Surgery - D & C, Hx Myringotomy - Immunizations Hx Diphtheria, Pertussis, Tetanus Vaccination: No - refused Physical Exam - Vital signs Vitals: Temp Pulse Resp BP Pulse Ox 98.0 F 94 20 100/65 90 L 02/28/19 09:12 02/28/19 09:12 02/28/19 09:12 02/28/19 09:12 02/28/19 09:12 Course - Vital Signs Vital signs: Temp Pulse Resp BP Pulse Ox 98.0 F 94 20 100/65 90 L 02/28/19 09:12 02/28/19 09:12 02/28/19 09:12 02/28/19 09:12 02/28/19 09:12
[2019-02-28] MEDS ORDERED: ALBUTEROL SULFATE 0.083% NEB 2.5 MG/3 ML AMPUL NEB ONE (11:08)
--- NOTE | 2019-02-28 12:45 | ER Document Report ---
ED General - General Chief Complaint: Shortness Of Breath Stated Complaint: SHORTNESS OF BREATH Time Seen by Provider: 02/28/19 11:00 Mode of Arrival: Ambulatory TRAVEL OUTSIDE OF THE [place] IN LAST 30 DAYS: No - HPI Notes: 28-year-old female to the emergency department with complaints of cough and shortness of breath that is been getting progressively worse for the past week. She states that she has been using her son's inhaler at home for her shortness of breath. She states that she does not have asthma but her son and her mother do. She states that she smokes. She denies any fevers, chills. She states that she really does feel quite short of breath. She does use Mirena but no other oral contraceptives or oral hormones. She denies any leg swelling. She denies any recent immobilization. She denies any recent surgery. She denies any recent long distance travel. She denies any history of malignancy or any history of DVT in herself. She denies any family history of coagulopathies. She does endorse some chest pain when she is coughing. Prior to our interview she had received 2 nebulizer treatments and she states that she still feels poorly. She denies any other complaints - Related Data Allergies/Adverse Reactions: oxycodone HCl [From Percocet] Adverse Reaction (Intermediate, Verified 02/28/19 09:10) Vomiting promethazine HCl [From Phenergan] Adverse Reaction (Intermediate, Verified 02/28/19 09:10) VOMITING Past Medical History - General Information source: Patient - Social History Smoking Status: Current Every Day Smoker Frequency of alcohol use: Occasional Drug Abuse: Marijuana Family History: Reviewed & Not Pertinent Patient has suicidal ideation: No Patient has homicidal ideation: No - Past Medical History Cardiac Medical History: Denies: Hx Atrial Fibrillation, Hx Congestive Heart Failure, Hx Hypertension Pulmonary Medical History: Denies: Hx Asthma, Hx COPD, Hx Pneumonia Renal/ Medical History: Denies: Hx Peritoneal Dialysis Psychiatric Medical History: Reports: Hx Bipolar Disorder, Hx Depression Past Surgical History: Reports: Hx Dilation and Curettage, Hx Gynecologic Surgery - D & C, Hx Myringotomy - Immunizations Hx Diphtheria, Pertussis, Tetanus Vaccination: No - refused Review of Systems - Review of Systems Constitutional: Malaise. denies: Chills, Fever Cardiovascular: Chest pain - Chest pain with coughing. denies: Palpitations, Heart racing, Orthopnea, Dizziness, Lightheaded Respiratory: See HPI, Cough, Short of breath. denies: Hurts to breathe Gastrointestinal: denies: Abdominal pain, Diarrhea, Nausea Female Genitourinary: No symptoms reported Musculoskeletal: No symptoms reported Skin: No symptoms reported Hematologic/Lymphatic: No symptoms reported Neurological/Psychological: No symptoms reported -: Yes All other systems reviewed and negative Physical Exam - Vital signs Vitals: Temp Pulse Resp BP Pulse Ox 98.0 F 94 20 100/65 90 L 02/28/19 09:12 02/28/19 09:12 02/28/19 09:12 02/28/19 09:12 02/28/19 09:12 Interpretation: Hypoxic - Notes Notes: There is an O2 sat of 90% on room air - General General appearance: Alert In distress: None - HEENT Head: Normocephalic, Atraumatic Eyes: Normal Pupils: PERRL Ears: Normal External canal: Normal Tympanic membrane: Normal Sinus: Normal Nasal: Clear rhinorrhea Mouth/Lips: Normal. No: Angioedema Mucous membranes: Normal Pharynx: Post nasal drainage, Other - There is injection to the posterior oropharyngeal region. There is no evidence for peritonsillar abscess. There is no evidence for ludwigs angina. The patient's airway is grossly patent.. No: Peritonsillar abscess, Retropharyngeal abscess, Tonsillar hypertrophy, Uvular edema Neck: Normal, Supple. No: Lymphadenopathy, Meningismus, Thyromegally - Respiratory Respiratory status: No respiratory distress. No: Labored, Tachypnea, Tripod position Chest status: Nontender Breath sounds: Decreased air movement - Decreased air movement throughout. No wheezes, rhonchi, rales. Patient has a nonproductive cough., Nonproductive cough. No: Rales, Rhonchi, Stridor, Wheezing Chest palpation: Normal - Cardiovascular Rhythm: Regular Heart sounds: Normal auscultation Murmur: No - Abdominal Inspection: Normal Distension: No distension Bowel sounds: Normal Tenderness: Nontender Organomegaly: No organomegaly - Back Back: Normal, Nontender - Neurological Neuro grossly intact: Yes Cognition: Normal Orientation: AAOx4 Naz Coma Scale Eye Opening: Spontaneous [place] Coma Scale Verbal: Oriented Naz Coma Scale Motor: Obeys Commands [place] Coma Scale Total: 15 Speech: Normal Motor strength normal: LUE, RUE, LLE, RLE Sensory: Normal - Psychological Associated symptoms: Normal affect, Normal mood - Skin Skin Temperature: Warm Skin Moisture: Dry Skin Color: Normal Course - Re-evaluation Re-evalutation: Patient has improved. She is able to ambulate about the ER with good sustained O2 sat. She states she is feeling better as well. While her chest XR is nega tive, since she is a smoker and was initially has so much wheezing, will go ahead and cross cover with Abx. Will also discharge with steroids and inhaler. Patient agrees with the plan. Encouraged to return if worse. PCP follow up. - Vital Signs Vital signs: Temp Pulse Resp BP Pulse Ox 98.0 F 94 18 111/73 95 02/28/19 16:01 02/28/19 09:12 02/28/19 16:01 02/28/19 16:00 02/28/19 16:01 Noted O2 sat of 95% and overall significantly improved vital signs. - Laboratory Result Diagrams: 02/28/19 13:25 02/28/19 13:25 Laboratory results interpreted by me: 02/28/19 02/28/19 13:25 13:25 Lymph % (Auto) 12.6 L [place] % (Auto) 2.3 L Seg Neutrophils % 82.1 H Glucose 162 H Discharge - Discharge Clinical Impression: Bronchitis, Shortness of breath, Cough Condition: Stable Disposition: HOME, SELF-CARE Instructions: Bronchitis ([facility]) Additional Instructions: TAKE MEDICINES PRESCRIBED. RETURN IF WORSE IN THE NEXT 24 HOURS. PUSH FLUIDS. COMPLETE ANTIBIOTICS AND STEROIDS. Prescriptions: Prednisone [Deltasone 10 mg Tablet] 10 mg PO ASDIR PRN #21 tablet PRN Reason: Doxycycline Hyclate 100 mg PO BID #20 capsule
[2019-02-28] MEDS ORDERED: NORMAL SALINE 1000 ML 1,000 ML IV ONE (12:58)
[2019-02-28 13:41] LABS: ABSOLUTE EOSINOPHILS # (AUTO) 0.2 10^3/uL (0.0-0.6); ABSOLUTE LYMPHOCYTES (AUTO) 1.1 10^3/uL (0.5-4.7); ABSOLUTE MONOCYTES (AUTO) 0.2 10^3/uL (0.1-1.4); ABSOLUTE NEUT (AUTO) 7.3 10^3/uL (1.7-8.2); BASOPHILS % (AUTO) 0.5 % (0-2); EOSINOPHILS % (AUTO) 2.5 % (0-6); HEMOGLOBIN 13.8 g/dL (12.0-15.5); LYMPHOCYTES % (AUTO) 12.6 % (13-45); MEAN CORPUSCULAR HEMOGLOBIN 32.1 pg (27.0-33.4); MEAN CORPUSCULAR HGB CONC 34.4 g/dL (32.0-36.0); MEAN CORPUSCULAR VOLUME 93 fl (80-97); MONOCYTES % (AUTO) 2.3 % (3-13); PLATELET COUNT 386 10^3/uL (150-450); RED CELL DISTRIBUTION WIDTH 12.6 % (11.5-14.0); SEGMENTED NEUTROPHILS % (AUTO) 82.1 % (42-78); TOTAL CELLS COUNTED % (AUTO) 100 %; WHITE BLOOD COUNT 8.9 10^3/uL (4.0-10.5)
[2019-02-28 14:04] LABS: ANION GAP 13 (5-19); BLOOD UREA NITROGEN 12 mg/dL (7-20); CALCIUM 9.5 mg/dL (8.4-10.2); CARBON DIOXIDE 24 mmol/L (22-30); CHLORIDE 106 mmol/L (98-107); GLUCOSE 162 mg/dL (75-110); POTASSIUM 3.7 mmol/L (3.6-5.0)
[2019-02-28] MEDS: MAGNESIUM SULFATE/D5W 1 GM/100 ML RTUPB IV SCH ×2 (14:04→14:58)
[2019-02-28] MEDS ORDERED: ALBUTEROL SULFATE HFA (90 MCG/PUFF) 8 GM MDI (1 MDI/ER DISP) IH ONE (15:58)
[2019-02-28 16:28] VITALS: BP 111/73
== END 2019-02-28 16:57 | disposition home or self-care (01) ==
LOC: ER 09:04
DX: J40 Bronchitis, not specified as acute or chronic (principal); R06.02 Shortness of breath; R53.81 Other malaise; F17.200 Nicotine dependence, unspecified, uncomplicated
CPT/HCPCS: 94640 ×2; 99285; 96372; 96361; 96365; 96366; 36415; 85025; 80048; 84484; 85379; 71046; J2930; J3475; J7030; J3490; J7620

== ENCOUNTER 2020-02-21 08:52 | Emergency (ER) | payer OTHER ==
[2020-02-21 09:54] VITALS: BP 124/83
[2020-02-21] MEDS ORDERED: IBUPROFEN 600 MG TABLET PO ONE (10:37)
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
== END 2020-02-21 11:57 | disposition home or self-care (01) ==
LOC: ER 08:52
DX: S29.019A Strain of muscle and tendon of unspecified wall of thorax, initial encounter (principal); M54.5 Low back pain; F17.200 Nicotine dependence, unspecified, uncomplicated; V89.2XXA Person injured in unspecified motor-vehicle accident, traffic, initial encounter; Z88.6 Allergy status to analgesic agent
CPT/HCPCS: 72070; 99283

== ENCOUNTER → 2020-03-03 | Outpatient (CLI) | payer SELFPAY ==
--- NOTE | 2020-03-03 11:25 | ER [facility] ASSESSMENT REPORT ---
Intake - In the Last 14 days Have you traveled outside [place]?: No Have you been in close contact with someone CONFIRMED: No Worked in Healthcare?: No - Symptoms Subjective Fever([place] feverish): No Chills: No Muscule Aches: No Runny Nose: Yes Sore Throat: No Cough (New or worsening chronic cough): Yes Shortness of breath: No Nausea or Vomiting: No Headache: No Abdominal Pain: No Diarrhea(3 or more loose stools in last 24 hours): No - Do you have any of the following Chronic lung disease: Asthma or emphysema or COPD: No Cystic Fibrosis: No Diabetes: No High Blood Pressure: No Cardiovascular Disease: No Chronic Kidney Disease: No Chronic Liver Disease: No Chronic blood disorder like Sickle Cell Disease: No Weak immune system due to disease or medication: No Neurologic condition that limits movement: No Developmental delay - Moderate to Severe: No Recent (within past 2 weeks) or current : No Morbid Obesity (>100 pounds over ideal weight): No - Objective Temperature: 97.8 F Pulse Rate: 90 Respiratory Rate: 16 Blood Pressure: 107/64 Objective: Given above, testing performed: If Testing Performed: Test Specimen Type Sent to General - General Information source: Patient Notes: Patient presents to the [facility] for screening for the coronavirus. Patient reports runny nose and cough. Patient is a smoker. - Related Data Allergies/Adverse Reactions: oxycodone HCl [From Percocet] Adverse Reaction (Intermediate, Verified 02/21/20 09:03) Vomiting promethazine HCl [From Phenergan] Adverse Reaction (Intermediate, Verified 02/21/20 09:03) VOMITING Past Medical History - General Information source: Patient - Social History Smoking Status: Current Every Day Smoker Lives with: Family Family History: Reviewed & Not Pertinent - Past Medical History Cardiac Medical History: Denies: Hx Atrial Fibrillation, Hx Congestive Heart Failure, Hx Hypertension Pulmonary Medical History: Denies: Hx Asthma, Hx COPD, Hx Pneumonia Renal/ Medical History: Denies: Hx Peritoneal Dialysis Psychiatric Medical History: Reports: Hx Bipolar Disorder, Hx Depression Past Surgical History: Reports: Hx Dilation and Curettage, Hx Gynecologic Surgery - D & C and , Hx Myringotomy Physical Exam - Notes Notes: The patient was evaluated during the global Covid 19 pandemic, and that diagnosis was suspected/considered upon their initial presentation. Their evaluation, treatment and testing was consistent with current guidelines for patients who present with complaints or symptoms that may be related to Covid 19. Full physical exam could not be performed due to covid 19 isolation protocols. Constitutional: Nontoxic appearance, no acute distress Eyes: Nonicteric, extraocular movements intact, sclera clear ENT: Clear rhinorrhea Cardiovascular: Heart rate and rhythm regular, no JVD Respiratory: Breath sounds clear bilaterally, nonlabored breathing, no use of accessory muscles, no tachypnea Gastrointestinal: Abdomen not distended Muculoskeletal: Moves all extremities well Skin: Normal color Neuro: Awake alert oriented, normal speech Psych: Normal mood and affect Diagnostic Results Laboratory Results: Patient presents with exposure worrisome for possible Covid 19. Patient does not have emergency worrying symptoms such as difficulty breathing, shortness of breath, chest pain, pressure, confusion or cyanosis. Patient appears suitable for discharge as they are not of an advanced age, do not have any chronic medical conditions such as diabetes, CAD, immune deficiency, chronic lung disease or chronic kidney disease. Patient's vital signs are stable and patient is nontoxic in appearance. Good return precautions have been discussed with patient, patient verbalized understanding and is agreeable with discharge plan of care at this time. Patient Education/Counseling Counseling/Education: Patient was provided with discharge information including: As a person under investigation for Covid 19, the [place] department of Health and Human Services, division of public health advises you to adhere to the following guidance until your test results are reported to you. If your test result is positive, you will receive additional information from your provider and your local health department at that time. Remain at home until you are cleared by the health provider or public health authorities. Keep a log of visitors to your home, notify any visitors to your home of your isolation status. If you plan to move to a new address or leave the county, notify the local health department in your County. Call your doctor or seek care if you have an urgent medical need. Before seeking medical care, call ahead to get instructions from the provider before arriving at the medical office clinic or hospital. Notify them that you are being tested for the virus that causes Covid 19 so that arrangements can be made, as necessary, to prevent transmission to others in the healthcare setting. Next, notify the local health department in your county. If a medical emergency arises and you need to call 911, inform the first respo nders that you are being tested for the virus that causes Covid 19. Next, notify the local health department in your county. [facility] Discharge - Discharge Condition: Stable Disposition: Home; Selfcare
[2020-03-03 11:39] VITALS: BP 107/64
== END ==
LOC: RDC 10:36
PROVIDERS: ATTEND Nurse Practitioner Family
DX: Z20.828 Contact with and (suspected) exposure to other viral communicable diseases (principal); R09.89 Other specified symptoms and signs involving the circulatory and respiratory systems; R05 Cough; F17.210 Nicotine dependence, cigarettes, uncomplicated; Z88.5 Allergy status to narcotic agent; Z88.8 Allergy status to other drugs, medicaments and biological substances; F31.89 Other bipolar disorder
CPT/HCPCS: 87635; 99201; 99211; C9803